=== PATIENT | female | born 2000 | race Caucasian/White ===

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

== ENCOUNTER 2022-06-18 00:35 | Emergency (ER) | payer MEDICAID ==
[~2022-06-18] VITALS: Ht 165.1 cm; Wt 60.0 kg
[2022-06-18 01:06] VITALS: BP 127/60
[2022-06-18] MEDS ORDERED: CIPR1DRO2 RIGHT EAR (06:29)
[2022-06-18] MEDS ORDERED: IBUP-2029 PO (06:29)
[2022-06-18] MEDS ORDERED: AMOX-494 MT (06:29)
== END 2022-06-18 06:45 | disposition home or self-care (01) ==
LOC: ER 00:35
DX: H73.011 Bullous myringitis, right ear (principal); R05.9 Cough, unspecified; R09.81 Nasal congestion
CPT/HCPCS: 99283